=== PATIENT | male | born 1940 | race American Indian/Alaskan Native ===

== ENCOUNTER 2019-04-19 01:48 | Inpatient (IN) | payer MEDICARE ==
[2019-04-19] MEDS ORDERED: SODIUM CHLORIDE 0.9% 1000 ML 1,000 ML IV ONE (02:12)
--- NOTE | 2019-04-19 02:14 | Emergency Department Report ---
ED Syncope HPI - General Chief Complaint: Syncope Stated Complaint: SYNCOPE Time Seen by Provider: 04/19/19 02:09 Source: patient, family Exam Limitations: no limitations - History of Present Illness Initial Comments: Patient is a 78-year-old male that presents emergency room for a possible syncopal episode. Patient states he was showering and the next thing he knows that he woke up on his bathroom floor with blood coming from his nose. Patient states that the shower curtain was on top of him. Patient states he is unsure if he lost consciousness and then fell and hit his face and head or if he hit his head and then lost consciousness. Patient denies headache. Patient complains of an abnormality to his nose. Patient denies chest pain or shortness of breath. Timing/Prior Episodes: single episode today Precipitating Factors: Positive: unknown Context: standing, other (Showering) Loss of Consciousness: prolonged (minutes) Current Symptoms: back to normal - Related Data Allergies/Adverse Reactions: Allergies Penicillins Allergy (Verified 01/01/14 12:21) Hives Home Medications: Ambulatory Orders Albuterol INH(or & Nicu Only) [ProAir] 1 puff INHALATION PRN PRN 01/01/14 Clopidogrel Bisulfate [Plavix] 1 tab PO DAILY 01/01/14 Loratadine [Vicks Qlearquil Allergy] 1 tab PO PRN PRN 01/01/14 Multivitamin [Multi-Vitamin Daily] 1 tab PO DAILY 01/01/14 NIFEdipine [Procardia Xl] 1 tab PO DAILY 01/01/14 Simvastatin 40 mg PO DAILY 01/01/14 glipiZIDE [glipiZIDE XL] 1 tab PO BID 01/01/14 lisinopriL [Lisinopril] 1 tab PO DAILY 01/01/14 metFORMIN [Glucophage] 1 tab PO BID 01/01/14 Cholecalciferol (Vitamin D3) [Vitamin D] 1 tab PO QDAY 01/12/14 Iron Polysaccharide Complex [Ferrex 150] 1 tab PO DAILY 01/12/14 ED Review of Systems ROS: Stated complaint: SYNCOPE Other details as noted in HPI Comment: All other systems reviewed and negative ED Past Medical Hx - Past Medical History Previous Medical History?: Yes Hx Hypertension: Yes Hx Diabetes: Yes (TYPE II 2 YRS AGO) Hx Asthma: No - Surgical History Past Surgical History?: Yes Hx Coronary Stent: ("HE TOLD ME I WASN'T GETTING ENOUGH BLOOD IN LOWER PART OF MY HEART") Additional Surgical History: prostate - Family History Family history: no significant - Social History Smoking Status: Current Every Day Smoker Substance Use Type: None - Medications Home Medications: Home Medications Medication Instructions Recorded Confirmed Last Taken Type Albuterol INH(or & Nicu Only) 1 puff INHALATION PRN PRN 01/01/14 01/14/14 01/13/14 History [ProAir] Clopidogrel Bisulfate [Plavix] 1 tab PO DAILY 01/01/14 01/01/14 12/24/13 History Loratadine [Vicks Qlearquil 1 tab PO PRN PRN 01/01/14 01/14/14 01/13/14 History Allergy] Multivitamin [Multi-Vitamin Daily] 1 tab PO DAILY 01/01/14 01/14/14 01/13/14 History NIFEdipine [Procardia Xl] 1 tab PO DAILY 01/01/14 01/14/14 01/14/14 06:00 History Simvastatin 40 mg PO DAILY 01/01/14 01/14/14 01/13/14 History glipiZIDE [glipiZIDE XL] 1 tab PO BID 01/01/14 01/14/14 01/13/14 History lisinopriL [Lisinopril] 1 tab PO DAILY 01/01/14 01/14/14 01/14/14 06:00 History metFORMIN [Glucophage] 1 tab PO BID 01/01/14 01/14/14 01/13/14 History Cholecalciferol (Vitamin D3) 1 tab PO QDAY 01/12/14 01/14/14 01/13/14 History [Vitamin D] Iron Polysaccharide Complex 1 tab PO DAILY 01/12/14 01/14/14 01/13/14 History [Ferrex 150] ED Physical Exam - General Limitations: No Limitations General appearance: alert, in no apparent distress - Head Head exam: Present: atraumatic, normocephalic - Eye Eye exam: Present: normal appearance, PERRL Pupils: Present: normal accommodation - ENT ENT exam: Present: mucous membranes moist, other (Deformity noted to the nose.) - Neck Neck exam: Present: normal inspection, full ROM. Absent: tenderness, meningismus - Respiratory Respiratory exam: Present: normal lung sounds bilaterally. Absent: respiratory distress, wheezes, rales - Cardiovascular Cardiovascular Exam: Present: regular rate, normal rhythm. Absent: systolic murmur, diastolic murmur, rubs, gallop - GI/Abdominal GI/Abdominal exam: Present: soft, normal bowel sounds. Absent: distended, tenderness, guarding - Rectal Rectal exam: Present: deferred - Extremities Exam Extremities exam: Present: normal inspection - Back Exam Back exam: Present: normal inspection - Neurological Exam Neurological exam: Present: alert, oriented X3 - Psychiatric Psychiatric exam: Present: normal affect, normal mood - Skin Skin exam: Present: warm, dry, intact, normal color. Absent: rash ED Course Vital Signs 04/19/19 04/19/19 04/19/19 01:50 01:58 02:00 Temperature 97.6 F Pulse Rate 77 77 Respiratory 13 16 13 Rate Blood Pressure 158/81 158/81 O2 Sat by Pulse 99 97 Oximetry 04/19/19 04/19/19 04/19/19 02:16 02:36 02:46 Temperature Pulse Rate 78 76 72 Respiratory 15 15 Rate Blood Pressure 157/82 157/82 157/82 O2 Sat by Pulse 96 97 98 Oximetry 04/19/19 04/19/19 04/19/19 03:00 03:15 03:31 Temperature Pulse Rate 72 75 74 Respiratory 19 17 16 Rate Blood Pressure 171/91 154/84 154/84 O2 Sat by Pulse 98 97 98 Oximetry 04/19/19 04/19/19 04/19/19 03:45 04:00 04:15 Temperature Pulse Rate Respiratory Rate Blood Pressure 154/84 183/98 183/98 O2 Sat by Pulse 100 98 98 Oximetry 04/19/19 04/19/19 04:31 04:45 Temperature Pulse Rate Respiratory Rate Blood Pressure 183/98 183/98 O2 Sat by Pulse 99 93 Oximetry - Reevaluation(s) Reevaluation #1: I discussed all results with patient. I discussed plan of care with patient. I will attempt to reduce the patient's nasal bone for comfort. Patient will be given Zofran and Dilaudid. 04/19/19 04:29 Reevaluation #2: I I discussed all results with patient. I discussed plan of care with patient. Patient agrees with plan of care and admission. Patient to be admitted to the hospitalist service. 04/19/19 05:45 - Consultations Consultation #1: Hospitalist consulted for admission. Hospitalist to admit patient. Bridge o rders placed. 04/19/19 05:01 ED Medical Decision Making - Lab Data Result diagrams: 04/19/19 03:01 04/19/19 03:01 - EKG Data -: EKG Interpreted by Me EKG shows normal: sinus rhythm, axis, intervals, QRS complexes, ST-T waves Rate: normal - EKG Data Interpretation: other (IRBBB) - Radiology Data Radiology results: report reviewed, image reviewed CHEST 1 VIEW INDICATION / CLINICAL INFORMATION: Syncope. COMPARISON: FINDINGS: Patient is rotated SUPPORT DEVICES: None. HEART / MEDIASTINUM: No significant abnormality. LUNGS / PLEURA: No significant pulmonary or pleural abnormality.. No pneumothorax. ADDITIONAL FINDINGS: No significant additional findings. IMPRESSION: 1. No acute findings. CT facial bones wo con INDICATION: facial trauma. TECHNIQUE: All CT scans at this location are performed using the following dose modulation technique: Automated exposure control. Helical slices were obtained through the facial b ones. Coronal and sagittal reformatted images were obtained. COMPARISON: None available. FINDINGS: There is a fracture of the nasal bone. No other fractures are seen. The orbits appear intact. There is mild mucosal thickening in the paranasal sinuses. No air-fluid levels are seen. No focal lytic or sclerotic lesions are seen. IMPRESSION: 1. There is a fracture of the nasal bone. CT HEAD WITHOUT CONTRAST INDICATION: Syncope TECHNIQUE: Axial slices were obtained through the head. Coronal and sagittal reformatted images were obtained. COMPARISON: None available. FINDINGS: There is no intracranial hemorrhage or extra-axial fluid collection. Ventricles, basilar cisterns, and sulci appear within normal limits for age. There is no mass lesion or midline shift. No acute territorial infarct is identified. Bone windows demonstrate nasal bone fracture. Paranasal sinuses and mastoid air cells appear clear. TECHNIQUE: All CT scans at this facility use dose modulation, iterative reconstruction, automated exposure control, weight based dosing, when appropriate, to reduce radiation dose to as low as reasonably achievable. IMPRESSION: 1. No acute intracranial abnormality. There is a fracture of the nasal bone - Medical Decision Making Patient is a 78-year-old male who presents emergency room for prolonged syncopal episode and a head injury. Patient sustained facial trauma and had a displaced deformity to his nose. Patient had a CT of the head due to his syncopal episode. Patient CT the head was negative except for nasal fracture. Patient also had a facial bone CT done for his facial trauma. Patient noted to have a displaced nasal fracture. Patient had labs done. Patient had EKG done which shows no acute findings. Patient's labs are unremarkable except for acute renal failure. Patient admitted to the hospitalist service for further evaluation treatment and management of his renal failure. - Differential Diagnosis Syncope, head trauma, facial trauma, head injury, concussion. Dehydration Critical Care Time: Yes Critical care time in (mins) excluding proc time.: 45 Critical care attestation.: If time is entered above; I have spent that time in minutes in the direct care of this critically ill patient, excluding procedure time. Critical Care Time: 45 minutes ED Disposition Clinical Impression: Prolonged loss of consciousness Renal failure Qualifiers: Renal failure chronicity: acute Acute renal failure type: unspecified Qualified Code(s): N17.9 - Acute kidney failure, unspecified Syncope Qualifiers: Syncope type: unspecified Qualified Code(s): R55 - Syncope and collapse Nasal fracture Qualifiers: Encounter type: initial encounter Fracture type: closed Qualified Code(s): S02.2XXA - Fracture of nasal bones, initial encounter for closed fracture Disposition: -09 OP ADMIT IP TO THIS HOSP Is pt being admited?: Yes Does the pt Need Aspirin: No Condition: Critical Time of Disposition: 05:11
--- NOTE | 2019-04-19 02:59 | Cat Scan Report ---
CT HEAD WITHOUT CONTRAST INDICATION: Syncope TECHNIQUE: Axial slices were obtained through the head. Coronal and sagittal reformatted images were obtained. COMPARISON: None available. FINDINGS: There is no intracranial hemorrhage or extra-axial fluid collection. Ventricles, basilar cisterns, an d sulci appear within normal limits for age. There is no mass lesion or midline shift. No acute sotero torial infarct is identified. Bone windows demonstrate nasal bone fracture. Paranasal sinuses and mastoid air cells appear clear. TECHNIQUE: All CT scans at this facility use dose modulation, iterative reconstruction, automated ex posure control, weight based dosing, when appropriate, to reduce radiation dose to as low as reasonab ly achievable. IMPRESSION: 1. No acute intracranial abnormality. There is a fracture of the nasal bone Signer Name: Fausto Juares MD Signed: 04/19/2019 2:55 AM Workstation Name: [id number]
--- NOTE | 2019-04-19 03:03 | Cat Scan Report ---
CT facial bones wo con INDICATION: facial trauma. TECHNIQUE: All CT scans at this location are performed using the following dose modulation technique: Automated exposure control. Helical slices were obtained through the facial bones. Coronal and sagittal reforma tted images were obtained. COMPARISON: None available. FINDINGS: There is a fracture of the nasal bone. No other fractures are seen. The orbits appear intact. There i s mild mucosal thickening in the paranasal sinuses. No air-fluid levels are seen. No focal lytic or sclerotic lesions are seen. IMPRESSION: 1. There is a fracture of the nasal bone. Signer Name: Fausto Juraes MD Signed: 04/19/2019 2:59 AM Workstation Name: [id number]
--- NOTE | 2019-04-19 03:04 | XRay Report ---
CHEST 1 VIEW INDICATION / CLINICAL INFORMATION: Syncope. COMPARISON: FINDINGS: Patient is rotated SUPPORT DEVICES: None. HEART / MEDIASTINUM: No significant abnormality. LUNGS / PLEURA: No significant pulmonary or pleural abnormality.. No pneumothorax. ADDITIONAL FINDINGS: No significant additional findings. IMPRESSION: 1. No acute findings. Signer Name: Fausto Juares MD Signed: 04/19/2019 3:00 AM Workstation Name: [id number]
[2019-04-19 03:35] LABS: Creatine Kinase MB 1.7 ng/mL (0.0-4.0)
[2019-04-19 03:36] LABS: Alanine Aminotransferase 10 units/L (7-56); Albumin 4.3 g/dL (3.9-5); BUN/Creatinine Ratio 9; Blood Urea Nitrogen 20 mg/dL (9-20); Calcium 9.6 mg/dL (8.4-10.2); Hemolysis Index 5
[2019-04-19 04:21] LABS: Basophils % (Auto) 0.8 % (0.0-1.8); Eosinophils % (Auto) 1.7 % (0.0-4.3); Hematocrit 43.7 % (35.5-45.6); Hemoglobin 14.5 gm/dl (11.8-15.2); Lymphocytes % (Auto) 28.1 % (13.4-35.0); Mean Corpuscular HGB Conc 33 % (32-34); Mean Corpuscular Volume 90 fl (84-94); Monocytes % (Auto) 10.3 % (0.0-7.3); Platelet Count 218 K/mm3 (140-440); Red Blood Count 4.85 M/mm3 (3.65-5.03); Red Cell Distribution Width 16.4 % (13.2-15.2)
[2019-04-19 04:22] LABS: Basophils # (Auto) 0.1 K/mm3 (0.0-0.1); Eosinophils # (Auto) 0.1 K/mm3 (0.0-0.4); Lymphocytes # (Auto) 1.8 K/mm3 (1.2-5.4); Monocytes # (Auto) 0.7 K/mm3 (0.0-0.8)
[2019-04-19] MEDS ORDERED: ONDANSETRON 4 MG/2 ML INJ IV ONE (04:26)
[2019-04-19] MEDS ORDERED: HYDROmorphone 1 MG/1 ML INJ IV ONE (04:26)
--- NOTE | 2019-04-19 10:26 | History and Physical Report ---
History of Present Illness Date of examination: 04/19/19 Date of admission: 04/19/19 06:30 Chief complaint: passed out History of present illness: Patient is 78 yo with hypertension ,hyperlipidemia ,diabetes. He presents with an episode of syncope. Patient states he went to the bathroom to take a shower and passed out. He denies any chest pain or shortness of breath. Patient states he has been noncompliant and has not followed with his doctors for years. He used to go to Dr. Aditya Wright for cardiology but has not gone in a long time. He was seen and evaluated in the emergency department. Patient was slightly elevated at 152/81. Creatinine was elevated 2.3. Will admit to telemetry for further work-up. Also of note he states he has a history of irregular heartbeat and was on Coumadin but had stopped taking it a long time ago. Past History Past Medical History: atrial fib, diabetes, hypertension, hyperlipidemia Past Surgical History: Other (Prostate surgery) Social history: , lives with family, smoking (Smokes half pack cigarettes daily), full code. denies: alcohol abuse, IV drug use Family history: diabetes, hypertension Medications and Allergies Allergies Allergy/AdvReac Type Severity Reaction Status Date / Time Penicillins Allergy Hives Verified 01/01/14 12:21 Home Medications Medication Instructions Recorded Confirmed Last Taken Type Simvastatin 40 mg PO DAILY 01/01/14 04/19/19 01/13/14 History glipiZIDE [glipiZIDE XL] 1 tab PO BID 01/01/14 04/19/19 01/13/14 History Albuterol INH(or & Nicu Only) 2 puff IH DAILY 04/19/19 04/19/19 Unknown History [ProAir HFA Inhaler] DULoxetine [Cymbalta] 1 tab PO DAILY 04/19/19 04/19/19 Unknown History NIFEdipine [Nifedipine ER] 90 mg PO DAILY 04/19/19 04/19/19 Unknown History Pioglitazone HCl [Actos] 1 tab PO DAILY 04/19/19 04/19/19 Unknown History Tamsulosin [Flomax] 1 tab PO DAILY 04/19/19 04/19/19 Unknown History hydroCHLOROthiazide 1 tab PO DAILY 04/19/19 04/19/19 Unknown History [Hydrochlorothiazide] Review of Systems All systems: negative Exam - Physical Exam Narrative exam: GEN: Not in acute distress, lying in bed, HEENT: Normocephalic, atraumatic, Neck: supple, No JVD Lungs: Clear to auscultation bilaterally, no wheeze, heart;S1 and S2 reg, no murmurs, rubs or gallop Abd:soft, non tender , non distended, normal bowel sounds Ext: No edema, no clubbing, no cyanosis Neuro: Awake,alert, oriented X 3, no focal neurological signs - Constitutional Vitals: Temp Pulse Resp BP Pulse Ox 97.6 F 74 16 153/78 91 04/19/19 01:58 04/19/19 03:31 04/19/19 03:31 04/19/19 09:10 04/19/19 09:10 Results - Labs CBC & Chem 7: 04/20/19 04:59 04/20/19 04:59 Labs: Abnormal lab results 04/19/19 04/19/19 Range/Units 03:01 03:01 RDW 16.4 H (13.2-15.2) % [place] % (Auto) 10.3 H (0.0-7.3) % Creatinine 2.3 H (0.8-1.5) mg/dL Assessment and Plan Syncope. Etiology unclear Admit to Telemetry Neurochecks Echocardiogram cardiology consult HTN Monitor BP Hyperlipidemia statin Diabetes mellitus type 2 Check accuchek qac and hs History of irregular heart beat?? atrialfib He states he was on Coumadin but stopped taking it, and was not following up. Elevated Creatinine 2.3 acute vs acute on chronic Patient states he had some kidney problems but cannot give details Full code status
--- NOTE | 2019-04-19 12:29 | Consultation ---
History of Present Illness Consult date: 04/19/19 Consult reason: syncope History of present illness: The patient is a 78-year-old man who was brought into the hospital following a s yncopal episode at home. It is reported that he was in the shower when he had syncope, which lasted less than a minute. On contact with the medical system, he has been in a stable normal sinus rhythm. He denies any associated chest pain, palpitations or shortness of breath. No seizures were reported. He describes being under the care of a manager of investigations Dr. Cole Wright, he has not seen in several years due to "financial considerations". He is uncertain about any specific cardiac pathology that merited chronic cardiology management. He does not remember any specific cardiac testing in the recent past. There are no cardiac evaluation reports in his hospital records. His ECG is abnormal appears myopathic, with a normal sinus rhythm, left axis deviation, left anterior fascicular block, left ventricle hypertrophy. No old ECGs for comparison. Past History Past Medical History: hypertension Medications and Allergies Allergies Allergy/AdvReac Type Severity Reaction Status Date / Time Penicillins Allergy Hives Verified 01/01/14 12:21 Home Medications Medication Instructions Recorded Confirmed Last Taken Type Simvastatin 40 mg PO DAILY 01/01/14 04/19/19 01/13/14 History glipiZIDE [glipiZIDE XL] 1 tab PO BID 01/01/14 04/19/19 01/13/14 History Albuterol INH(or & Nicu Only) 2 puff IH DAILY 04/19/19 04/19/19 Unknown History [ProAir HFA Inhaler] DULoxetine [Cymbalta] 1 tab PO DAILY 04/19/19 04/19/19 Unknown History NIFEdipine [Nifedipine ER] 90 mg PO DAILY 04/19/19 04/19/19 Unknown History Pioglitazone HCl [Actos] 1 tab PO DAILY 04/19/19 04/19/19 Unknown History Tamsulosin [Flomax] 1 tab PO DAILY 04/19/19 04/19/19 Unknown History hydroCHLOROthiazide 1 tab PO DAILY 04/19/19 04/19/19 Unknown History [Hydrochlorothiazide] Review of Systems Cardiovascular: syncope, no chest pain, no orthopnea, no palpitations, no rapid/irregular heart beat, no edema, no lightheadedness, no shortness of breath Physical Examination Vital Signs Resp 13 04/19/19 01:50 General appearance: no acute distress HEENT: Positive: PERRL Neck: Positive: neck supple Cardiac: Positive: Reg Rate and Rhythm Lungs: Positive: Decreased Breath Sounds Neuro: Positive: Grossly Intact Abdomen: Positive: Soft Male genitourinary: Positive: deferred Skin: Positive: Clear Extremities: Absent: edema Results 04/19/19 03:01 04/19/19 03:01 Cardiac Enzymes 04/19/19 Range/Units 03:01 AST 17 (5-40) units/L CK-MB (CK-2) 1.7 (0.0-4.0) ng/mL CBC 04/19/19 Range/Units 03:01 WBC 6.4 (4.5-11.0) K/mm3 RBC 4.85 (3.65-5.03) M/mm3 Hgb 14.5 (11.8-15.2) gm/dl Hct 43.7 (35.5-45.6) % Plt Count 218 (140-440) K/mm3 Lymph # 1.8 (1.2-5.4) K/mm3 [place] # 0.7 (0.0-0.8) K/mm3 Eos # 0.1 (0.0-0.4) K/mm3 Baso # 0.1 (0.0-0.1) K/mm3 Comprehensive Metabolic Panel 04/19/19 Range/Units 03:01 Sodium 141 (137-145) mmol/L Potassium 4.1 (3.6-5.0) mmol/L Chloride 100.0 (98-107) mmol/L Carbon Dioxide 28 (22-30) mmol/L BUN 20 (9-20) mg/dL Creatinine 2.3 H (0.8-1.5) mg/dL Glucose 80 (75-100) mg/dL Calcium 9.6 (8.4-10.2) mg/dL AST 17 (5-40) units/L ALT 10 (7-56) units/L Alkaline Phosphatase 59 (35-129) units/L Total Protein 7.8 (6.3-8.2) g/dL Albumin 4.3 (3.9-5) g/dL EKG interpretations - Telemetry EKG Rhythm: Sinus Rhythm Assessment and Plan - Patient Problems (1) Syncope Current Visit: Yes Status: Acute Qualifiers: Syncope type: unspecified Qualified Code(s): R55 - Syncope and collapse Plan to address problem: Syncope while in the shower, may likely be vasovagal, but in the presence of a myopathic appear in ECG, patient needs aggressive cardiac workup. We will get an echocardiogram for left ventricular function assessment, and a predischarge ischemic cardiac workup based on clinical progress.
[2019-04-19] MEDS ORDERED: MORPHINE 2 MG/1 ML INJ IV PRN (18:16)
[2019-04-19] MEDS ORDERED: ACETAMINOPHEN 325 MG TAB PO PRN (18:16)
[2019-04-19] MEDS ORDERED: ONDANSETRON 4 MG/2 ML INJ IV PRN (18:16)
[2019-04-20] MEDS: SODIUM CHLORIDE 0.9% 1000 ML 1,000 ML IV SCH ×2 (01:29→15:32)
[2019-04-20 05:41] LABS: Basophils # (Auto) 0.1 K/mm3 (0.0-0.1); Basophils % (Auto) 0.9 % (0.0-1.8); Eosinophils # (Auto) 0.2 K/mm3 (0.0-0.4); Eosinophils % (Auto) 2.9 % (0.0-4.3); Hematocrit 38.8 % (35.5-45.6); Hemoglobin 12.9 gm/dl (11.8-15.2); Lymphocytes # (Auto) 2.9 K/mm3 (1.2-5.4); Lymphocytes % (Auto) 36.4 % (13.4-35.0); Mean Corpuscular HGB Conc 33 % (32-34); Mean Corpuscular Volume 91 fl (84-94); Monocytes # (Auto) 0.8 K/mm3 (0.0-0.8); Monocytes % (Auto) 10.3 % (0.0-7.3); Platelet Count 189 K/mm3 (140-440); Red Blood Count 4.28 M/mm3 (3.65-5.03); Red Cell Distribution Width 16.1 % (13.2-15.2)
[2019-04-20 06:04] LABS: Calcium 8.3 mg/dL (8.4-10.2)
[2019-04-20] MEDS ORDERED: NON-FORMULARY EACH (Nifedipine [Nifedipine Er] 90 MG) PO SCH (13:15)
[2019-04-20] MEDS ORDERED: NON-FORMULARY EACH (Simvastatin [Simvastatin] 40 MG) PO SCH (13:15)
[2019-04-20] MEDS: TAMSULOSIN 0.4 MG CAP PO SCH (13:58)
[2019-04-20] MEDS: DULoxetine 30 MG CAP PO SCH (13:58)
--- NOTE | 2019-04-20 14:51 | Progress Note ---
Assessment and Plan - Patient Problems (1) Syncope Current Visit: Yes Status: Acute Qualifiers: Syncope type: unspecified Qualified Code(s): R55 - Syncope and collapse Plan to address problem: Syncope while in the shower, may likely be vasovagal, but in the presence of a myopathic appearing ECG, patient needs aggressive cardiac workup. Echocardiogram shows well-preserved left ventricular systolic function, ejection fraction 50-55%. We will order a Lexiscan thallium stress test for further ischemic assessment. Subjective Date of service: 04/20/19 Interval history: Patient is comfortable, in no acute distress. Echocardiogram shows well- preserved left ventricle systolic function, ejection fraction 50-55%. Objective Vital Signs Temp Pulse Resp BP Pulse Ox 04/20/19 10:45 67 04/20/19 07:43 98.8 F 18 158/79 04/20/19 07:25 20 04/20/19 04:21 98.0 F 74 20 152/98 94 04/20/19 04:16 64 95 04/20/19 04:14 98.0 F 57 L 18 169/78 95 04/19/19 23:02 98.0 F 74 18 134/67 95 04/19/19 22:00 74 04/19/19 21:40 96 H 21 102/87 96 04/19/19 21:30 96 H 21 102/87 96 04/19/19 21:20 93 H 22 102/87 97 04/19/19 21:10 98 H 24 102/87 96 04/19/19 21:00 95 H 23 102/87 97 04/19/19 20:50 91 H 21 118/80 99 04/19/19 20:40 90 21 118/80 95 04/19/19 20:32 97 H 17 118/80 96 04/19/19 20:30 95 H 14 118/80 98 04/19/19 20:26 92 H 12 118/80 97 04/19/19 20:20 95 H 13 118/80 100 04/19/19 20:10 96 H 14 118/80 90 04/19/19 20:00 128/89 93 04/19/19 19:50 98.0 F 73 18 147/76 90 04/19/19 19:40 128/89 93 04/19/19 19:30 128/89 90 04/19/19 19:20 128/89 93 04/19/19 19:10 128/89 91 04/19/19 19:00 128/89 75 L 04/19/19 18:50 108/72 89 04/19/19 18:41 108/72 93 04/19/19 18:32 108/72 91 04/19/19 18:20 108/72 92 04/19/19 18:00 108/72 89 04/19/19 17:50 108/72 90 04/19/19 17:40 95 H 25 H 108/72 88 04/19/19 17:30 99 H 21 108/72 04/19/19 17:20 96 H 25 H 108/72 04/19/19 17:10 96 H 24 108/72 04/19/19 17:00 95 H 24 108/72 04/19/19 16:50 96 H 12 110/66 04/19/19 16:42 15 153/78 04/19/19 16:29 98.6 F 68 18 156/80 93 - Physical Examination General: No Apparent Distress HEENT: Positive: PERRL Neck: Positive: neck supple Cardiac: Positive: Reg Rate and Rhythm Lungs: Positive: Decreased Breath Sounds Neuro: Positive: Grossly Intact Abdomen: Positive: Soft Skin: Positive: Clear Extremities: Absent: edema - Labs and Meds CBC 04/20/19 Range/Units 04:59 WBC 8.0 (4.5-11.0) K/mm3 RBC 4.28 (3.65-5.03) M/mm3 Hgb 12.9 (11.8-15.2) gm/dl Hct 38.8 (35.5-45.6) % Plt Count 189 (140-440) K/mm3 Lymph # 2.9 (1.2-5.4) K/mm3 [place] # 0.8 (0.0-0.8) K/mm3 Eos # 0.2 (0.0-0.4) K/mm3 Baso # 0.1 (0.0-0.1) K/mm3 Comprehensive Metabolic Panel 04/20/19 Range/Units 04:59 Sodium 142 (137-145) mmol/L Potassium 4.5 (3.6-5.0) mmol/L Chloride 103.2 (98-107) mmol/L Carbon Dioxide 24 (22-30) mmol/L BUN 26 H (9-20) mg/dL Creatinine 2.4 H (0.8-1.5) mg/dL Glucose 112 H (75-100) mg/dL Calcium 8.3 L (8.4-10.2) mg/dL
[2019-04-20] MEDS: NIFEdipine XL 90 MG TAB PO SCH (15:33)
--- NOTE | 2019-04-20 17:43 | Progress Note ---
Assessment and Plan Assessment and plan: Syncope. Etiology unclear Admit to Telemetry Neurochecks Echocardiogram cardiology consulted, followin For stress test tomorrow Fracture nasal bone after fall Conservative management HTN Monitor BP Hyperlipidemia statin Diabetes mellitus type 2 Check accuchek qac and hs History of irregular heart beat?? atrialfib He states he was on Coumadin but stopped taking it, and was not following up. Elevated Creatinine 2.3 Acute on chronic kidney disease due to vasomotor Patient states he had some kidney problems but cannot give details Full code status History Interval history: patient presented with syncope, fell broke nose Hospitalist Physical - Physical exam Narrative exam: GEN: Not in acute distress, lying in bed, HEENT: tender, deformed nose, Neck: supple, No JVD Lungs: Clear to auscultation bilaterally, no wheeze, heart;S1 and S2 reg, no murmurs, rubs or gallop Abd:soft, non tender , non distended, normal bowel sounds Ext: No edema, no clubbing, no cyanosis Neuro: Awake,alert, oriented X 3, no focal neurological signs - Constitutional Vitals: Temp Pulse Resp BP Pulse Ox 98.8 F 67 18 158/79 94 04/20/19 07:43 04/20/19 10:45 04/20/19 07:43 04/20/19 07:43 04/20/19 04:21 General appearance: Present: no acute distress Results - Labs CBC & Chem 7: 04/21/19 05:00 04/21/19 05:00 Labs: Laboratory Last Values WBC 8.0 K/mm3 (4.5-11.0) 04/20/19 04:59 RBC 4.28 M/mm3 (3.65-5.03) 04/20/19 04:59 Hgb 12.9 gm/dl (11.8-15.2) 04/20/19 04:59 Hct 38.8 % (35.5-45.6) 04/20/19 04:59 MCV 91 fl (84-94) 04/20/19 04:59 MCH 30 pg (28-32) 04/20/19 04:59 MCHC 33 % (32-34) 04/20/19 04:59 RDW 16.1 % (13.2-15.2) H 04/20/19 04:59 Plt Count 189 K/mm3 (140-440) 04/20/19 04:59 Lymph % (Auto) 36.4 % (13.4-35.0) H 04/20/19 04:59 [place] % (Auto) 10.3 % (0.0-7.3) H 04/20/19 04:59 Eos % (Auto) 2.9 % (0.0-4.3) 04/20/19 04:59 Baso % (Auto) 0.9 % (0.0-1.8) 04/20/19 04:59 Lymph # 2.9 K/mm3 (1.2-5.4) 04/20/19 04:59 [place] # 0.8 K/mm3 (0.0-0.8) 04/20/19 04:59 Eos # 0.2 K/mm3 (0.0-0.4) 04/20/19 04:59 Baso # 0.1 K/mm3 (0.0-0.1) 04/20/19 04:59 Add Manual Diff Complete 04/19/19 03:01 Seg Neutrophils % 49.5 % (40.0-70.0) 04/20/19 04:59 Seg Neutrophils # 4.0 K/mm3 (1.8-7.7) 04/20/19 04:59 Sodium 142 mmol/L (137-145) 04/20/19 04:59 Potassium 4.5 mmol/L (3.6-5.0) 04/20/19 04:59 Chloride 103.2 mmol/L (98-107) 04/20/19 04:59 Carbon Dioxide 24 mmol/L (22-30) 04/20/19 04:59 Anion Gap 19 mmol/L 04/20/19 04:59 BUN 26 mg/dL (9-20) H 04/20/19 04:59 Creatinine 2.4 mg/dL (0.8-1.5) H 04/20/19 04:59 Estimated GFR 32 ml/min 04/20/19 04:59 BUN/Creatinine Ratio 11 % 04/20/19 04:59 Glucose 112 mg/dL (75-100) H 04/20/19 04:59 Calcium 8.3 mg/dL (8.4-10.2) L 04/20/19 04:59 Total Bilirubin 0.30 mg/dL (0.1-1.2) 04/19/19 03:01 AST 17 units/L (5-40) 04/19/19 03:01 ALT 10 units/L (7-56) 04/19/19 03:01 Alkaline Phosphatase 59 units/L (35-129) 04/19/19 03:01 Total Creatine Kinase 117 units/L (55-170) 04/19/19 03:01 CK-MB (CK-2) 1.7 ng/mL (0.0-4.0) 04/19/19 03:01 CK-MB (CK-2) Rel Index 1.4 (0-4) 04/19/19 03:01 Troponin T < 0.010 ng/mL (0.00-0.029) 04/19/19 03:01 Total Protein 7.8 g/dL (6.3-8.2) 04/19/19 03:01 Albumin 4.3 g/dL (3.9-5) 04/19/19 03:01 Albumin/Globulin Ratio 1.2 % 04/19/19 03:01 Active Medications - Current Medications Current Medications: Generic Name Dose Route Start Last Admin Trade Name Freq PRN Reason Stop Dose Admin Acetaminophen 650 mg 04/19/19 18:16 Tylenol PO Q4H PRN Pain MILD(1-3)/Fever >100.5/BURNS Duloxetine HCl 30 mg 04/20/19 14:00 04/20/19 13:58 Cymbalta PO 30 mg DAILY KEMI Administration Sodium Chloride 1,000 mls @ 75 mls/hr 04/19/19 18:30 04/20/19 15:32 Nacl 0.9% 1000 Ml IV 75 mls/hr DIRECT KEMI Administration Morphine Sulfate 2 mg 04/19/19 18:16 Morphine IV Q4H PRN Pain, Moderate (4-6) Nifedipine 90 mg 04/20/19 16:00 04/20/19 15:33 Procardia Xl PO 90 mg QDAY KEMI Administration Ondansetron HCl 4 mg 04/19/19 18:16 Zofran IV Q8H PRN Nausea And Vomiting Pravastatin Sodium 80 mg 04/20/19 22:00 Pravachol PO QHS KEMI Sodium Chloride 10 ml 04/19/19 22:00 04/20/19 10:32 Sodium Chloride Flush Syringe 10 Ml IV Not Given BID KEMI Sodium Chloride 10 ml 04/19/19 18:16 Sodium Chloride Flush Syringe 10 Ml IV PRN PRN LINE FLUSH Tamsulosin HCl 0.4 mg 04/20/19 14:00 04/20/19 13:58 Flomax PO 0.4 mg DAILY KEMI Administration
[2019-04-20] MEDS ORDERED: PRAVASTATIN 80 MG TAB PO SCH (22:00)
[2019-04-21] MEDS: HEPARIN 5,000 UNIT/1 ML VIAL SUB-Q SCH ×2 (04:41→13:02)
[2019-04-21 05:53] LABS: Hematocrit 41.7 % (35.5-45.6); Hemoglobin 13.7 gm/dl (11.8-15.2); Mean Corpuscular HGB Conc 33 % (32-34); Mean Corpuscular Volume 91 fl (84-94); Platelet Count 191 K/mm3 (140-440); Red Blood Count 4.61 M/mm3 (3.65-5.03)
[2019-04-21 06:25] LABS: Calcium 8.8 mg/dL (8.4-10.2)
[2019-04-21] MEDS ORDERED: REGADENOSON 0.4 MG/5 ML INJ IV ONE (07:05)
[2019-04-21 12:09] VITALS: BP 139/75
[2019-04-21] MEDS: TAMSULOSIN 0.4 MG CAP PO SCH (13:02)
[2019-04-21] MEDS: NIFEdipine XL 90 MG TAB PO SCH (13:02)
[2019-04-21] MEDS: DULoxetine 30 MG CAP PO SCH (13:02)
--- NOTE | 2019-04-21 15:44 | Progress Note ---
Assessment and Plan - Patient Problems (1) Acute kidney injury Current Visit: Yes Status: Acute Plan to address problem: Acute kidney injury Baseline creatinine 1.6 mg/DL Peak creatinine 2.4 Current creatinine is 1.9 Etiology secondary volume depletion Continue intravenous fluids Avoid nephro toxic medications (2) Syncope Current Visit: Yes Status: Acute Qualifiers: Syncope type: unspecified Qualified Code(s): R55 - Syncope and collapse Plan to address problem: Syncope Work-up ongoing status post stress test today (3) Hypertension Current Visit: Yes Status: Acute Qualifiers: Hypertension type: essential hypertension Qualified Code(s): I10 - Essential (primary) hypertension Plan to address problem: Hypertension controlled continue current medications (4) Anemia Current Visit: Yes Status: Acute Plan to address problem: Mild anemia Monitor CBC Subjective Interval history: 78-year-old gentleman with medical history significant for chronic kidney disease admitted with syncopal events, acute kidney injury Patient is much better today status post stress test Denies any orthopnea PND Objective - Vital Signs Vital signs: Vital Signs - 12hr 04/21/19 04/21/19 04/21/19 04:26 09:13 10:00 Temperature 98.4 F Pulse Rate 68 67 Respiratory 18 Rate Blood Pressure 152/84 Blood Pressure 141/68 [Left] O2 Sat by Pulse 99 Oximetry 04/21/19 04/21/19 04/21/19 10:11 10:12 10:14 Temperature Pulse Rate Respiratory Rate Blood Pressure 149/81 151/80 126/82 Blood Pressure [Left] O2 Sat by Pulse Oximetry 04/21/19 04/21/19 10:16 10:18 Temperature Pulse Rate Respiratory Rate Blood Pressure 141/80 139/75 Blood Pressure [Left] O2 Sat by Pulse Oximetry - General Appearance General appearance: well-developed, well-nourished EENT: ATNC, PERRL Neck: no JVD Respiratory: Present: Clear to Ascultation Cardiology: regular, S1S2 Gastrointestinal: normal, normoactive bowel sounds Integumentary: no rash Neurologic: alert and oriented x3, CN 3-12 intact Psychiatric: mood/affect appropriate - Lab 04/21/19 05:00 04/21/19 05:00 Most recent lab results Calcium 8.8 mg/dL (8.4-10.2) 04/21/19 05:00 - Imaging Chest x-ray: image reviewed (Chest x-ray reviewed without pulmonary edema) Medications & Allergies - Medications Allergies/Adverse Reactions: Allergies Penicillins Allergy (Verified 01/01/14 12:21) Hives Home Medications: Home Medications Medication Instructions Recorded Confirmed Last Taken Type Simvastatin 40 mg PO DAILY 01/01/14 04/19/19 01/13/14 History glipiZIDE [glipiZIDE XL] 1 tab PO BID 01/01/14 04/19/19 01/13/14 History Albuterol INH(or & Nicu Only) 2 puff IH DAILY 04/19/19 04/19/19 Unknown History [ProAir HFA Inhaler] DULoxetine [Cymbalta] 1 tab PO DAILY 04/19/19 04/19/19 Unknown History NIFEdipine [Nifedipine ER] 90 mg PO DAILY 04/19/19 04/19/19 Unknown History Pioglitazone HCl [Actos] 1 tab PO DAILY 04/19/19 04/19/19 Unknown History Tamsulosin [Flomax] 1 tab PO DAILY 04/19/19 04/19/19 Unknown History hydroCHLOROthiazide 1 tab PO DAILY 04/19/19 04/19/19 Unknown History [Hydrochlorothiazide] Active Medications: Generic Name Dose Route Start Last Admin Trade Name Freq PRN Reason Stop Dose Admin Acetaminophen 650 mg 04/19/19 18:16 Tylenol PO Q4H PRN Pain MILD(1-3)/Fever >100.5/BURNS Duloxetine HCl 30 mg 04/20/19 14:00 04/21/19 13:02 Cymbalta PO 30 mg DAILY KEMI Administration Heparin Sodium (Porcine) 5,000 unit 04/20/19 22:00 04/21/19 13:02 Heparin SUB-Q 5,000 unit Q12HR KEMI Administration Sodium Chloride 1,000 mls @ 75 mls/hr 04/19/19 18:30 04/20/19 15:32 Nacl 0.9% 1000 Ml IV 75 mls/hr DIRECT KEMI Administration Morphine Sulfate 2 mg 04/19/19 18:16 Morphine IV Q4H PRN Pain, Moderate (4-6) Nifedipine 90 mg 04/20/19 16:00 04/21/19 13:02 Procardia Xl PO 90 mg QDAY KEMI Administration Ondansetron HCl 4 mg 04/19/19 18:16 Zofran IV Q8H PRN Nausea And Vomiting Pravastatin Sodium 80 mg 04/20/19 22:00 04/21/19 04:42 Pravachol PO 80 mg QHS KEMI Administration Sodium Chloride 10 ml 04/19/19 22:00 04/21/19 13:02 Sodium Chloride Flush Syringe 10 Ml IV 10 ml BID KEMI Administration Sodium Chloride 10 ml 04/19/19 18:16 Sodium Chloride Flush Syringe 10 Ml IV PRN PRN LINE FLUSH Tamsulosin HCl 0.4 mg 04/20/19 14:00 04/21/19 13:02 Flomax PO 0.4 mg DAILY KEMI Administration
--- NOTE | 2019-04-21 17:13 | Event Note ---
Date: 04/21/19 Patient underwent a thallium stress test today, normal myocardial perfusion study, normal left ventricular systolic function. No further inpatient cardiac workup is indicated, patient is stable for cardiac discharge. As palpation, he will be considered for an ambulatory event monitor.
--- NOTE | 2019-04-21 17:22 | Discharge Summary ---
Providers - Providers Date of Admission: 04/19/19 06:30 Date of discharge: 04/21/19 Attending physician: FABIOLA LICEA 04/19/19 10:31 Consult to Physician [CONS] Routine Comment: Consulting Provider: MARY GARCIA Physician Instructions: Reason For Exam: Syncope 04/20/19 17:42 Consult to Physician [CONS] Routine Comment: Consulting Provider: DHARMESH DALEY Physician Instructions: Reason For Exam: Elevated Creatinine Primary care physician: CHLORINATOR OPERATOR Hospitalization Condition: Fair Disposition: DC-01 TO HOME OR SELFCARE - Discharge Diagnoses (1) Acute on chronic kidney failure Status: Acute (2) Vasomotor nephropathy Status: Acute (3) Dehydration Status: Acute (4) Hypertension Status: Acute Qualifiers: Hypertension type: essential hypertension Qualified Code(s): I10 - Essential (primary) hypertension (5) Nasal fracture Status: Acute Qualifiers: Encounter type: initial encounter Fracture type: closed Qualified Code(s): S02.2XXA - Fracture of nasal bones, initial encounter for closed fracture (6) Nasal bone fracture Status: Acute Exam - Constitutional Vitals: Temp Pulse Resp BP Pulse Ox 98.4 F 67 18 139/75 99 04/21/19 04:26 04/21/19 10:00 04/21/19 04:26 04/21/19 10:18 04/21/19 04:26 Plan Activity: no restrictions Diet: low fat, low cholesterol, low salt, renal Plan of Treatment: 1.Follow up with PCP or [facility] in 1 week. 2.Follow up with Nephrology, Dr. Lynch in 1 week 3.Follow up with Dr. Russ, cardiology in 3-5 days 4.Follow up with ENT Physician for nasal fracture in 3-5 days
--- NOTE | 2019-04-21 21:37 | Treadmill Report ---
THALLIUM STRESS TEST. LEFT VENTRICLE: Left ventricular chamber size is within normal spread. Perfusion study demonstrates homogeneous uptake of the tracer in all segments, no defects identified. Gated analysis demonstrates normal left ventricular systolic function, ejection fraction calculated at 75%. CONCLUSION: Normal myocardial perfusion study. JOB# [id number] CA/NTS
== END 2019-04-21 19:43 | disposition home or self-care (01) | DRG 312 ==
LOC: ED 01:48 → 4A 06:30
PROVIDERS: ADMIT Internal Medicine; ATTEND Internal Medicine
DX: R55 Syncope and collapse (principal); N17.0 Acute kidney failure with tubular necrosis; E86.0 Dehydration; N18.9 Chronic kidney disease, unspecified; S02.2XXA Fracture of nasal bones, initial encounter for closed fracture; I12.9 Hypertensive chronic kidney disease with stage 1 through stage 4 chronic kidney disease, or unspecified chronic kidney disease; E78.5 Hyperlipidemia, unspecified; F17.200 Nicotine dependence, unspecified, uncomplicated; E11.22 Type 2 diabetes mellitus with diabetic chronic kidney disease; I48.91 Unspecified atrial fibrillation; D64.9 Anemia, unspecified; W18.39XA Other fall on same level, initial encounter; Z88.0 Allergy status to penicillin; Z79.899 Other long term (current) drug therapy; Z82.49 Family history of ischemic heart disease and other diseases of the circulatory system; Z83.3 Family history of diabetes mellitus; Y93.89 Activity, other specified; Y92.091 Bathroom in other non-institutional residence as the place of occurrence of the external cause; Y99.8 Other external cause status
CPT/HCPCS: 36415; 70450; 70486; 71045; 78452; 80048; 80053; 82550; 82553; 84484; 85025; 85027; 93005; 93010; 93017; 93306; 96361; 96374; 99406; G0378; A9270-GY; A9502; J1170; J1644; J2405; J2785; J7030